=== PATIENT | male | born 1985 | race Hispanic/Latino ===

== ENCOUNTER → 2016-06-14 | Outpatient (CLI) | payer OTHER ==
[~2016-06-14] MED LIST: ADDE20CA PO; ADDE30CA PO; CELE-19 PO; TRAZO50TA FT
--- NOTE | 2016-06-17 10:21 | SLEEPCENT ---
DATE OF PROCEDURE: 06/14/2016 REQUESTING PROVIDER: Dr. Shadi Hart INTERPRETATION: Nocturnal polysomnography was performed for evaluation of sleep physiology in this patient with a history of sleep difficulties, including psychophysiologic insomnia and disrupted sleep. 7 hours and 39 minutes of data were reviewed. There were 277 minutes of sleep identified. Sleep latency was prolonged at 134 minutes. Rapid eye movement (REM) latency was also prolonged at 138 minutes. Sleep architecture showed fragmentation with poor sleep progression. Two REM periods were appreciated late in the study. Overall sleep efficiency was 61.8%. The patient's electrocardiogram (EKG) showed a sinus rhythm with an average heart rate of 64 beats per minute. Heart rate variability was seen surrounding respiratory events. Rate ranged 58 to 90 beats per minute. Electroencephalogram (EEG) showed fairly normal waveforms for awake and sleep. There were no focal events identified. Minimal alpha intrusion into non REM stages was seen. There were 25 respiratory events identified of 10 seconds in duration or greater for an apnea-hypopnea index of 5.1. The events were primarily obstructive, they were more common in the supine position, not stage related. Arousals from respiratory events occurred 4 times per hour when arousals from snoring were included. Snoring was particularly prominent late in the test. There was significant activity in the limb leads. Three to four trains of 30 events were identified and particularly at sleep onset. Limb movement arousals were prominent. Limb movement arousal index was 8. Oxygen desaturations rarely were seen below 90%. IMPRESSION: 1. Periodic limb movement disorder (G47.61). 2. Mild positional obstructive sleep apnea syndrome (G47.33). Apnea-hypopnea index of 5.1. RECOMMENDATIONS: Interventions to reduce the frequency of arousals from limb activity may improve the patient's ability to assume sleep and may improve the continuity of sleep late in the night. Position retraining for avoidance in the supine posture at minimum is recommended to address the obstructive apneic events. Pending success of this intervention, the patient may require formal pressure titration.
== END ==
LOC: M SLEEP 19:42
PROVIDERS: ATTEND Internal Medicine Pulmonary Disease
DX: F51.04 Psychophysiologic insomnia (principal); G47.33 Obstructive sleep apnea (adult) (pediatric); G47.61 Periodic limb movement disorder